=== PATIENT | male | born 1965 | race Native Hawaiian/Other Pacific Islander ===

== ENCOUNTER 2022-06-14 13:00 | Emergency (ER) | payer BC ==
[~2022-06-14] VITALS: Ht 167.6 cm; Wt 104.3 kg
[2022-06-14 13:00] VITALS: TEMP 98.2
[2022-06-14 13:23] LABS: PLATELET COUNT 314 K/uL (142-355)
[2022-06-14 13:30] LABS: SODIUM 137 mmol/L (136-145)
[2022-06-14 13:39] LABS: PARTIAL THROMBOPLASTIN TIME 28.8 SECONDS (24.5-33.6)
[2022-06-14 20:30] VITALS: BP 154/98
== END 2022-06-14 18:01 | disposition short-term general hospital (02) ==
LOC: ED 13:00
PROVIDERS: Emergency Medicine
DX: K56.699 Other intestinal obstruction unspecified as to partial versus complete obstruction (principal); E83.118 Other hemochromatosis
CPT/HCPCS: 80053; 84484; 85027; 85610; 85730; 93005; 96374; 96375; 99284; J1885; J2405